=== PATIENT | male | born 1980 | race Caucasian/White ===

== ENCOUNTER 2018-02-06 06:16 | Emergency (ER) | payer MEDICAID ==
[2018-02-06 06:52] VITALS: RESP 18
--- NOTE | 2018-02-06 07:33 | ED PDOC ---
Arrival/HPI - General Chief Complaint: Headache Time Seen by Provider: 02/06/18 07:26 Historian: Patient - History of Present Illness Narrative History of Present Illness (Text): 02/06/18 07:20 Patient is a 37 year old male who presents to the Emergency department with alcohol intoxication. Patient is asleep but arousable but wants to continue sleeping. Patient denies falling, pain or any other complaints. Symptom Course: Improving Past Medical History - Provider Review Nursing Documentation Reviewed: Yes - Infectious Disease Hx of Infectious Diseases: None - Cardiac Hx Hypertension: No - Pulmonary Hx Asthma: Yes - Neurological Hx Seizures: No - Endocrine/Metabolic Hx Systemic Lupus Erythematosus: Yes - Hematological/Oncological Hx Cancer: No - Musculoskeletal/Rheumatological Hx Falls: No - Gastrointestinal Other/Comment: hernia - Genitourinary/Gynecological Hx Sexually Transmitted Diseases: No - Psychiatric Hx Depression: Yes (present admission) Hx Substance Use: No - Surgical History Hx Cholecystectomy: Yes - Anesthesia Hx Anesthesia: Yes Hx Anesthesia Reactions: No Hx Malignant Hyperthermia: No - Suicidal Assessment Feels Threatened In Home Enviroment: No Family/Social History - Physician Review Nursing Documentation Reviewed: Yes Family/Social History: No Known Family HX Smoking Status: Light Smoker < 10 Cigarettes Daily Hx Alcohol Use: No Hx Substance Use: No Hx Substance Use Treatment: No Allergies/Home Meds Allergies/Adverse Reactions: Allergies No Known Allergies Allergy (Verified 05/19/17 20:40) Home Medications: Home Meds Medication Instructions Recorded Confirmed Pneumoc 13 Bryanna Conjugate Vacci 0.5 ml IM 02/06/18 [Prevnar 13] Review of Systems - Physician Review All systems were reviewed & negative as marked: Yes - Review of Systems Constitutional: absent: Fevers Cardiovascular: absent: Chest Pain Physical Exam - Physical Exam Narrative Physical Exam (Text): 02/06/18 07:55 Constitutional: No acute distress. snoring and easily arousable. Head: Normocephalic. Atraumatic. Eyes: PERRL. ENT: Moist mucous membranes. Neck: Supple. No midline tenderness Cardiovascular: Regular rate. Chest: No tenderness. Respiratory: Clear to auscultation bilaterally. GI: Soft. Nontender. Nondistended. Back: No CVA tenderness. No midline tenderness Musculoskeletal: No tenderness or swelling of extremities. Full ROMx4 Skin: No rash. Neurologic: Alert, no focal deficit. Vital Signs Temp Pulse Resp BP Pulse Ox 02/06/18 11:42 98 F 82 18 118/76 97 02/06/18 08:16 98.3 F 82 18 126/78 98 02/06/18 06:52 98.0 F 87 18 110/78 99 Temperature: Afebrile Blood Pressure: Normal Pulse: Regular Respiratory Rate: Normal Medical Decision Making ED Course and Treatment: 02/06/18 07:49 Impression: Patient is a 37 year old male with EtOH intoxication. Differential Diagnosis included but are not limited to: Alcohol intoxication Plan: --Head CT w/o contrast -- Reassess and disposition Prior Visits: Notes and results from previous visits were reviewed. Patient was last seen in the emergency department on 05/19/17 complaining of dental pain. Progress Notes: 02/06/18 12:22 Creator : Chino Talbert MD Dictator : Chino Talbert MD Behavioral Health Assistant : Chino Talbert MD Report Date : 02/06/2018 12:19:23 My Comment : PROCEDURE: CT HEAD WITHOUT CONTRAST. HISTORY: headache COMPARISON: None available. TECHNIQUE: Axial computed tomography images were obtained through the head/brain without intravenous contrast. Radiation dose: Total exam DLP = 1038.30 mGy-cm. This CT exam was performed using one or more of the following dose reduction techniques: Automated exposure control, adjustment of the mA and/or kV according to patient size, and/or use of iterative reconstruction technique. FINDINGS: HEMORRHAGE: No intracranial hemorrhage. BRAIN: No mass effect or edema. No atrophy or chronic microvascular ischemic changes. VENTRICLES: Unremarkable. No hydrocephalus. CALVARIUM: Unremarkable. PARANASAL SINUSES: Unremarkable as visualized. No significant inflammatory changes. MASTOID AIR CELLS: Unremarkable as visualized. No inflammatory changes. OTHER FINDINGS: None. IMPRESSION: No acute intracranial abnormalities. No significant findings to account for the clinical presentation. Patient awoke, alert, steady gait. - RAD Interpretation Radiology Orders: 02/06/18 11:25 HEAD W/O CONTRAST [CT] Stat - Medication Orders Current Medication Orders: Discontinued Medications Acetaminophen (Tylenol 325mg Tab) 650 mg PO STAT STA Stop: 02/06/18 13:56 - Scribe Statement The provider has reviewed the documentation as recorded by the Scribe Ethan Siennatung Provider Scribe Attestation: All medical record entries made by the Scribe were at my direction and personally dictated by me. I have reviewed the chart and agree that the record accurately reflects my personal performance of the history, physical exam, medical decision making, and the department course for this patient. I have also personally directed, reviewed, and agree with the discharge instructions and disposition. Disposition/Present on Arrival - Present on Arrival Any Indicators Present on Arrival: No History of DVT/PE: No History of Uncontrolled Diabetes: No Urinary Catheter: No History of Decub. Ulcer: No History Surgical Site Infection Following: None - Disposition Have Diagnosis and Disposition been Completed?: Yes Diagnosis: Alcohol intoxication Disposition: HOME/ ROUTINE Disposition Time: 13:53 Patient Plan: Discharge Patient Problems: Current Active Problems Problem Status Onset Alcohol intoxication Acute Condition: STABLE Discharge Instructions (ExitCare): Alcohol Abuse and Alcoholism (DC) Referrals: Maximino Nicolas MD [Primary Care Provider] - Follow up with primary Forms: [employer] (Romansh)
--- NOTE | 2018-02-06 12:21 | CT ---
PROCEDURE: CT HEAD WITHOUT CONTRAST. HISTORY: headache COMPARISON: None available. TECHNIQUE: Axial computed tomography images were obtained through the head/brain without intravenous contrast. Radiation dose: Total exam DLP = 1038.30 mGy-cm. This CT exam was performed using one or more of the following dose reduction techniques: Automated exposure control, adjustment of the mA and/or kV according to patient size, and/or use of iterative reconstruction technique. FINDINGS: HEMORRHAGE: No intracranial hemorrhage. BRAIN: No mass effect or edema. No atrophy or chronic microvascular ischemic changes. VENTRICLES: Unremarkable. No hydrocephalus. CALVARIUM: Unremarkable. PARANASAL SINUSES: Unremarkable as visualized. No significant inflammatory changes. MASTOID AIR CELLS: Unremarkable as visualized. No inflammatory changes. OTHER FINDINGS: None. IMPRESSION: No acute intracranial abnormalities. No significant findings to account for the clinical presentation.
[2018-02-06 14:30] VITALS: BP 135/72; PULSE 86; TEMP 98.3; O2SAT 95
== END 2018-02-06 14:45 | disposition home or self-care (01) ==
LOC: ED 06:16
DX: F10.129 Alcohol abuse with intoxication, unspecified (principal); F17.210 Nicotine dependence, cigarettes, uncomplicated; M32.9 Systemic lupus erythematosus, unspecified